=== PATIENT | female | born 1990 | race Caucasian/White ===

== ENCOUNTER 2016-08-22 13:29 | Emergency (ER) | payer OTHER ==
[~2016-08-22] VITALS: Ht 182.9 cm; Wt 80.7 kg
[2016-08-22 14:59] VITALS: BP 104/64
== END 2016-08-22 15:01 | disposition home or self-care (01) ==
LOC: EME 13:29
DX: Z76.0 Encounter for issue of repeat prescription (principal); F41.0 Panic disorder [episodic paroxysmal anxiety]; F17.200 Nicotine dependence, unspecified, uncomplicated
CPT/HCPCS: 99281; 99283

== ENCOUNTER 2016-10-06 02:35 | Emergency (ER) | payer OTHER ==
[~2016-10-06] VITALS: Ht 182.9 cm; Wt 84.1 kg
[2016-10-06] MEDS ORDERED: NAPROSYN500 MG PO (04:26)
[2016-10-06 04:45] VITALS: BP 107/67
== END 2016-10-06 04:46 | disposition home or self-care (01) ==
LOC: EME 02:35
PROC: 2W38X1Z Immobilization of Right Upper Extremity using Splint (ICD-10-PCS; principal; 2016-10-06)
DX: S42.401A Unspecified fracture of lower end of right humerus, initial encounter for closed fracture (principal); W10.1XXA Fall (on)(from) sidewalk curb, initial encounter; Y93.01 Activity, walking, marching and hiking
CPT/HCPCS: 73080; 73090; 73110; 99281; 99284